=== PATIENT | female | born 1955 | race Caucasian/White ===

== ENCOUNTER → 2016-06-11 | Outpatient (CLI) | payer BC ==
--- NOTE | 2016-06-11 10:55 | MA ---
Screening Digital Mammogram With iCAD Analysis Clinical Indications: Routine screening. The patient has had a benign left breast biopsy. Technique: Standard cephalocaudal and mediolateral oblique projections were obtained. A skin marker i s placed on the left breast biopsy scar. This examination was processed by the [employer] computer aided de tection system. Comparison: May 2015, April 2014, March 2013, February 2002. Breast density: Type C; Heterogeneously dense. Findings: CAD was reviewed. There are possible increasing microcalcifications in the central right br east. No associated soft tissue mass is seen. The left breast is stable in appearance. Impression: Possible increasing right breast microcalcifications require further evaluation, BI-RADS 0 Recommendation: Magnification views of the right breast. [facility] will send a result letter to the patient. Dense breast parenchyma diminishes mammographic sensitivity. Negative mammography should not preclude additional workup of a clinically suspicious finding. The patient's information is entered into a reminder system with a target due date for her next mammo gram.
== END ==
LOC: FIMAGING 09:05
DX: Z12.31 Encounter for screening mammogram for malignant neoplasm of breast (principal)
CPT/HCPCS: G0202

== ENCOUNTER → 2016-06-18 | Outpatient (CLI) | payer BC ==
--- NOTE | 2016-06-18 11:11 | MA ---
Diagnostic Digital Mammogram Right Breast With iCAD Analysis Reason for examination: Evaluate possible increasing right breast microcalcifications noted on the sc reening study June 11, 2016. Technique: Craniocaudal and true lateral magnification views are performed. Also, a true lateral is p erformed. The examination is processed by the iCAD computer-aided detection system. Findings: Diagnostic assessment confirms numerous microcalcifications. On the true lateral views, man y of these show a curvilinear characterization suggestive of benign milk of calcium calcification. Th ey appear more amorphic on the craniocaudal view. Impression: Probably benign right breast microcalcifications, BI-RADS 3. Recommendation: Six- month unilateral right mammographic follow up employing magnification technique. A verbal report was given to the patient. [facility] with send a result letter.
== END ==
LOC: FIMAGING 09:25
PROVIDERS: ATTEND Obstetrics & Gynecology
DX: Z12.39 Encounter for other screening for malignant neoplasm of breast (principal); R92.0 Mammographic microcalcification found on diagnostic imaging of breast
CPT/HCPCS: G0206

== ENCOUNTER → 2016-12-07 | Outpatient (CLI) | payer BC | LOC: FIMAGING 08:38 | PROVIDERS: ATTEND Obstetrics & Gynecology | DX: Z12.39 Encounter for other screening for malignant neoplasm of breast (principal); R92.8 Other abnormal and inconclusive findings on diagnostic imaging of breast | CPT/HCPCS: G0206 ==

== ENCOUNTER → 2018-04-28 | Outpatient (CLI) | payer BC | LOC: FIMAGING 08:20 | PROVIDERS: ATTEND Obstetrics & Gynecology | DX: Z12.31 Encounter for screening mammogram for malignant neoplasm of breast (principal) ==